=== PATIENT | male | born 1990 | race Caucasian/White ===

== ENCOUNTER 2022-09-03 08:30 | Day surgery (SDC) | payer MEDICAID, SELFPAY ==
[2022-09-03] VITALS (16 sets, daily range): BP systolic 140–179; BP diastolic 92–125; PULSE 58–100; RESP 16–20; TEMP 36.5–36.7; O2SAT 96–100; BMI 25.7
[2022-09-03] MEDS: SODIUM CHLORIDE 0.9 % (FLUSH) 10 ML SYRINGE IVF (09:00)
[2022-09-03] MEDS: LACTATED RINGERS 1000 ML 1,000 ML 100 ML IV (09:00)
--- NOTE | 2022-09-03 09:07 | SUR.PREOP ---
HOME COVID NEGATIVE.
--- NOTE | 2022-09-03 11:00 | W.ANESCHARGE ---
Anesthesia Charges Start Date/Time Anesthesia Start Date: 09/03/22 Anesthesia Start Time: 10:13 Stop Date/Time Anesthesia Stop Date: 09/03/22 Anesthesia Stop Time: 10:43
[2022-09-03] MEDS: MEPERIDINE 25 MG/ML INJ 12.5 MG IVP (11:08)
--- NOTE | 2022-09-03 11:08 | W.PM.ENTPROC ---
Procedure Note Date of procedure: 09/03/22 Procedure: Preop diagnosis cryptic tonsillitis chronic tonsillitis Postoperative diagnosis same Procedure tonsillectomy Under general endotracheal anesthesia patient was prepped and draped in usual fashion. The McIvor mouth gag was inserted the tongue retracted forward. 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 The right tonsil was removed with needlepoint and Coblation. The left was removed in a similar fashion. There was no adenoid pad on indirect visualization. The patient was extubated in the operating room taken recovery in satisfactory condition. Blood loss during procedure less than 10 mL. There were no complications. Surgeon: George Evans MD
[2022-09-03] MEDS: fentaNYL 100 MCG/2 ML inj 50 MCG IVP ×2 (11:23→11:30)
[2022-09-03] MEDS: ACETAMINOPHEN 160 MG/5 ML CUP 320 MG PO (11:45)
[2022-09-03] MEDS: IBUPROFEN 100 MG/5 ML SUSP 200 MG PO (11:45)
== END 2022-09-03 12:45 | disposition home or self-care (01) ==
PROVIDERS: PCP Family Medicine; Visit Provider Otolaryngology
PROC: (CPT 42826; principal; 2022-09-03 09:45)
DX: J35.01 Chronic tonsillitis (principal)
CPT/HCPCS: 42826; 00170; 88304; A9270; J0330; J1100; J2175; J2250; J2405; J2704; J3010; J3490; J7120